=== PATIENT | female | born 1960 | race Hispanic/Latino ===

== ENCOUNTER 2020-07-19 11:34 | Emergency (ER) | payer SELFPAY ==
[2020-07-19] MEDS ORDERED: HYDROcodone/Acetaminophen 5/325 mg Tablet ONE (13:26)
[2020-07-19] MEDS ORDERED: Ondansetron ODT 4 MG TAB ONE (13:32)
--- NOTE | 2020-07-19 15:14 | RAD ---
LEFT KNEE 4 VIEWS: Date: 07/19/2020 HISTORY: Fall with injury and pain to knee. FINDINGS: There is mild chondrocalcinosis seen involving both medial and lateral joint space. Minimal degenerat rose spurring. There is evidence of effusion in the suprapatellar region. Mild fullness in the prepatellar soft tiss ues. In the oblique view, there is a linear lucency seen along the lateral aspect of the patella which is suboptimally evaluated. A subtle patella fracture cannot be completely excluded. No evidence of fracture involving the tibia, fibula, or visualized femur. IMPRESSION: 1. Joint effusion and mild fullness in the prepatellar soft tissues. 2. Question fracture along the lateral margin of the patella. Recommend clinical correlation regardi ng patella tenderness. 3. Mild degenerative changes with chondrocalcinosis noted. POS: [facility]
--- NOTE | 2020-07-19 15:17 | RAD ---
3 VIEWS LEFT ANKLE: Date: 07/19/2020 COMPARISON: None. HISTORY: Trip and fall with ankle pain. FINDINGS: Three views of the left ankle show no evidence of acute fracture or dislocation. Mild soft tissue swe lling is seen. No degenerative changes are present. IMPRESSION: No evidence of acute osseous abnormality. POS: [facility]
== END 2020-07-19 14:12 | disposition home or self-care (01) ==
LOC: ERS 11:34
DX: S82.002A Unspecified fracture of left patella, initial encounter for closed fracture (principal); F17.210 Nicotine dependence, cigarettes, uncomplicated; W19.XXXA Unspecified fall, initial encounter
CPT/HCPCS: Q0162

== ENCOUNTER 2022-10-30 09:43 | Emergency (ER) | payer SELFPAY ==
[2022-10-30] MEDS ORDERED: Ketorolac Tromethamine 30 MG/ML VIAL ONE (10:58)
== END 2022-10-30 11:20 | disposition home or self-care (01) ==
LOC: ERS 09:43
DX: M72.2 Plantar fascial fibromatosis (principal); F17.210 Nicotine dependence, cigarettes, uncomplicated
CPT/HCPCS: 96372; J1885